=== PATIENT | female | born 2000 | race Caucasian/White ===

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

== ENCOUNTER → 2022-07-20 | Outpatient (CLI) | payer BC ==
[2022-07-21 13:10] LABS: Clam IgE <0.10 kU/L; Codfish IgE 0.12 kU/L; Egg White IgE 0.49 kU/L; Peanut IgE 0.57 kU/L; Peanut IgE 0.61 kU/L; Scallop IgE <0.10 kU/L; Shrimp IgE <0.10 kU/L; Soybean IgE 0.38 kU/L; Soybean IgE 0.41 kU/L; Walnut IgE (Food) 0.11 kU/L; Walnut IgE (Food) 0.13 kU/L
[2022-07-21 13:31] LABS: Beef IgE 1.12 kU/L (<0.10); Beef IgE Class CLASS 2; Crab IgE <0.10 kU/L (<0.10); Crab IgE Class CLASS 0; Lettuce IgE Class CLASS 0/1; Pork IgE Class CLASS 2
[2022-07-21 13:32] LABS: Onion IgE 0.23 kU/L (<0.10); Onion IgE Class CLASS 0/1; Potato IgE 0.68 kU/L (<0.10); Potato IgE Class CLASS 1; Salmon IgE 0.17 kU/L (<0.10); Salmon IgE Class CLASS 0/1; Yeast Bakers/Brew IgE <0.10 kU/L (<0.10); Yeast Bakers/Brew IgE Class CLASS 0
[2022-07-21 13:33] LABS: Apple IgE Class CLASS 2; Egg Yolk IgE Class CLASS 2; Gluten IgE Class CLASS 0/1; Lobster IgE <0.10 kU/L (<0.10); Lobster IgE Class CLASS 0; Oat IgE Class CLASS 2
[2022-07-21 13:34] LABS: Avocado Class CLASS 0/1; Banana IgE Class CLASS 1; Celery IgE 1.01 kU/L (<0.10); Celery IgE Class CLASS 2; Chicken IgE Class CLASS 2; Chocolate IgE Class CLASS 0; Hazelnut IgE 0.58 kU/L (<0.10); Hazelnut IgE Class CLASS 1; Kiwi IgE 0.15 kU/L (<0.10); Kiwi IgE Class CLASS 0/1; Latex IgE Class CLASS 0/1
[2022-07-21 13:35] LABS: Coffee IgE <0.10 kU/L (<0.10); Coffee IgE Class CLASS 0; Tea IgE <0.10 kU/L (<0.10); Tea IgE Class CLASS 0
== END | disposition home or self-care (01) ==
LOC: LABWHC1 08:48
PROVIDERS: ATTEND Otolaryngology
DX: J30.89 Other allergic rhinitis (principal)
CPT/HCPCS: 36415; 82785; 86003

== ENCOUNTER → 2025-05-09 | Outpatient (CLI) | payer OTHER ==
[2025-05-09 15:13] LABS: Basophils # (A) 0.08 X 10*3/uL (0.00-0.10); Basophils % (A) 1.1 %; Eosinophils # (A) 0.37 X 10*3/uL (0.04-0.35); Eosinophils % (A) 5.2 %; HCT 44.5 % (37.2-46.3); HGB 14.5 g/dL (12.0-15.0); Immature Grans, Automated 0.30 %; Lymphocytes # (A) 3.09 X 10*3/uL (0.90-5.00); Lymphocytes % (A) 43.2 %; MCH 29.4 pg (27.0-32.0); MCHC 32.6 g/dL (32.0-37.0); MCV 90.1 FL (80.0-97.0); Monocytes # (A) 0.51 X 10*3/uL (0.20-1.00); Monocytes % (A) 7.1 %; NRBC Per 100 WBC 0 X 10*3/uL (0.00-0.01); Neutrophils # (A) 3.08 X 10*3/uL (1.80-7.70); Neutrophils % (A) 43.1 %; Platelet Count 270 X 10*3/uL (140-440); RBC 4.94 X 10*6/uL (4.10-5.20); RDW 12.7 % (11.5-14.5); WBC 7.15 X 10*3/uL (4.50-10.00)
[2025-05-09 15:35] LABS: Cholesterol 244.00 mg/dL (0.00-200.00)
[2025-05-09 15:36] LABS: ALT 12 U/L (8-44); AST 17 U/L (13-35); Albumin 4.6 g/dL (3.8-4.9); Albumin/Globulin Ratio 1.70 Ratio (1.60-3.17); Alkaline Phosphatase 69 U/L (41-126); Anion Gap 11.10 mmol/L (4.00-12.00); BUN/Creat Ratio 12.12 Ratio (12.00-20.00); Blood Urea Nitrogen 9.7 mg/dL (9.0-27.0); Calcium 9.7 mg/dL (8.7-10.3); Carbon Dioxide 24.9 mmol/L (21.6-31.8); Chloride 104 mmol/L (96-109); Globulin 2.7 g/dL (1.6-3.3); Glucose 84 mg/dL (70-110); HDL Cholesterol 45.60 mg/dL (40.00-60.00); LDL Cholesterol,Calculated 182.4 mg/dL (0.0-131.0); Potassium 4.1 mmol/L (3.5-5.5); Sodium 140 mmol/L (135-145); Total Protein 7.3 g/dL (6.2-8.2); Triglycerides 80.10 mg/dL (0.00-149.00); VLDL Calculation 16.02 mg/dL (5.00-40.00)
== END | disposition home or self-care (01) ==
LOC: LABWHC1 12:19
PROVIDERS: ATTEND Family Medicine
DX: J06.9 Acute upper respiratory infection, unspecified (principal); Z83.49 Family history of other endocrine, nutritional and metabolic diseases
CPT/HCPCS: 36415; 80053; 80061; 85025